=== PATIENT | female | born 2000 | race Two or more races ===

== ENCOUNTER 2020-12-19 21:00 | Emergency (ER) | payer MEDICAID ==
[~2020-12-19] VITALS: Ht 167.6 cm; Wt 123.0 kg
[2020-12-19] MEDS ORDERED: SODIUM CHLORIDE 0.9% 1,000 ML IV ONE (23:15)
[2020-12-19 23:31] LABS: CLARITY URINE TURBID (CLEAR); COLOR URINE YELLOW (YELLOW); KETONES URINE NEGATIVE (NEGATIVE); LEUKOCYTE ESTERASE URINE NEGATIVE (NEGATIVE); NITRITE URINE NEGATIVE (NEGATIVE); OCCULT BLOOD URINE TRACE (NEGATIVE); PROTEIN URINE 2+ (NEGATIVE); SPECIFIC GRAVITY URINE 1.046 (1.005-1.030); UROBILINOGEN URINE 0.2 E.U./dL (0.2-1.0)
[2020-12-19 23:43] LABS: BASOPHILS % 0.3 % (0.0-2.0); EOSINOPHILS % 0.5 % (0.0-5.0); HEMATOCRIT. 37.6 % (36.0-48.0); HEMOGLOBIN. 12.4 g/dL (12.0-16.0); LYMPHOCYTES % 30.1 % (20.0-50.0); MEAN CORPUSCULAR HEMOGLOBIN 27.3 pg (28.0-32.0); MEAN PLATELET VOLUME 7.1 fl (7.4-10.4); MONOCYTES % 6.7 % (2.0-8.0); NEUTROPHILS % 62.4 % (40.0-76.0); PLATELET 343 x1000/uL (130-400); RED BLOOD CELL COUNT 4.53 mill/uL (4.2-5.4); RED CELL DISTRIBUTION WIDTH 14.2 % (11.6-14.6)
[2020-12-19 23:57] LABS: CHLORIDE 107 mEq/L (98-107)
[2020-12-20 00:09] LABS: B-HCG QUANTITATIVE 502 mIU/mL (<3)
[2020-12-20] MEDS ORDERED: METHOTREXATE SODIUM/PF 50 MG/2 ML VIAL IM ONE (01:30)
[2020-12-20 03:54] VITALS: BP 105/57
[2020-12-21] MEDS ORDERED: IBUP-2029 MT (14:19)
== END 2020-12-20 04:07 | disposition home or self-care (01) ==
LOC: ER 21:00
DX: O00.90 Unspecified ectopic pregnancy without intrauterine pregnancy (principal)
CPT/HCPCS: 36415; 76801; 76817; 80053; 81003; 81025; 84702; 85025; 86850; 86900; 86901; 93005; 96360; 96361; 96372; 99285; J7030; J9260

== ENCOUNTER 2020-12-30 13:21 | Emergency (ER) | payer MEDICAID ==
[~2020-12-30] VITALS: Ht 170.2 cm; Wt 122.0 kg
[~2020-12-30 13:21] MED LIST: IBUP-2029 MT
[2020-12-30] MEDS ORDERED: SODIUM CHLORIDE 0.9% 1,000 ML IV ONE (14:00)
[2020-12-30 14:53] LABS: BASOPHILS % 0.3 % (0.0-2.0); EOSINOPHILS % 1.2 % (0.0-5.0); HEMATOCRIT. 36.3 % (36.0-48.0); HEMOGLOBIN. 12.1 g/dL (12.0-16.0); MEAN CORPUSCULAR HEMOGLOBIN 27.7 pg (28.0-32.0); MEAN CORPUSCULAR VOLUME 83.5 fL (81.0-99.0); MEAN PLATELET VOLUME 6.7 fl (7.4-10.4); MONOCYTES % 7.9 % (2.0-8.0); NEUTROPHILS % 57.6 % (40.0-76.0); PLATELET 308 x1000/uL (130-400); RED BLOOD CELL COUNT 4.35 mill/uL (4.2-5.4)
[2020-12-30 15:03] LABS: PROTHROMBIN TIME 10.4 sec (9.6-11.0)
[2020-12-30 15:04] LABS: CHLORIDE 104 mEq/L (98-107)
[2020-12-30 15:15] LABS: B-HCG QUANTITATIVE 50 mIU/mL (<3)
[2020-12-30 16:34] LABS: CLARITY URINE CLEAR (CLEAR); COLOR URINE YELLOW (YELLOW); KETONES URINE NEGATIVE (NEGATIVE); LEUKOCYTE ESTERASE URINE NEGATIVE (NEGATIVE); NITRITE URINE NEGATIVE (NEGATIVE); OCCULT BLOOD URINE 3+ (NEGATIVE); PROTEIN URINE TRACE (NEGATIVE); SPECIFIC GRAVITY URINE 1.015 (1.005-1.030); UROBILINOGEN URINE 0.2 E.U./dL (0.2-1.0)
[2020-12-30 17:51] VITALS: BP 102/56
== END 2020-12-30 17:52 | disposition home or self-care (01) ==
LOC: ER 13:21
DX: O00.90 Unspecified ectopic pregnancy without intrauterine pregnancy (principal); I49.9 Cardiac arrhythmia, unspecified; E86.0 Dehydration
CPT/HCPCS: 36415; 76830; 76856; 80053; 81003; 81025; 84702; 85025; 85610; 86850; 86900; 86901; 93005; 96360; 99285; J7030; Z7610

== ENCOUNTER 2021-04-05 22:19 | Emergency (ER) | payer MEDICAID ==
[~2021-04-05] VITALS: Ht 165.1 cm; Wt 132.2 kg
[2021-04-06 01:49] LABS: CHLORIDE 106 mEq/L (98-107)
[2021-04-06 01:55] LABS: BASOPHILS % 0.6 % (0.0-2.0); EOSINOPHILS % 0.7 % (0.0-5.0); HEMATOCRIT. 38.4 % (36.0-48.0); HEMOGLOBIN. 12.5 g/dL (12.0-16.0); LYMPHOCYTES % 32.5 % (20.0-50.0); MEAN CORPUSCULAR HEMOGLOBIN 26.6 pg (28.0-32.0); MEAN CORPUSCULAR VOLUME 81.8 fL (81.0-99.0); MEAN PLATELET VOLUME 7.1 fl (7.4-10.4); MONOCYTES % 7.9 % (2.0-8.0); NEUTROPHILS % 58.3 % (40.0-76.0); PLATELET 303 x1000/uL (130-400); RED CELL DISTRIBUTION WIDTH 14.7 % (11.6-14.6)
[2021-04-06 02:12] LABS: B-HCG QUANTITATIVE 1803 mIU/mL (<3)
[2021-04-06 03:00] LABS: CLARITY URINE CLEAR (CLEAR); COLOR URINE YELLOW (YELLOW); KETONES URINE NEGATIVE (NEGATIVE); LEUKOCYTE ESTERASE URINE NEGATIVE (NEGATIVE); NITRITE URINE NEGATIVE (NEGATIVE); OCCULT BLOOD URINE NEGATIVE (NEGATIVE); PH URINE 7.5 (4.5-8.0); PROTEIN URINE NEGATIVE (NEGATIVE); SPECIFIC GRAVITY URINE 1.012 (1.005-1.030); UROBILINOGEN URINE 0.2 E.U./dL (0.2-1.0)
[2021-04-06] MEDS ORDERED: TOPUD MT (04:55)
[2021-04-06 05:02] VITALS: BP 132/69
== END 2021-04-06 05:02 | disposition home or self-care (01) ==
LOC: ER 22:22
DX: O26.891 Other specified pregnancy related conditions, first trimester (principal); K21.9 Gastro-esophageal reflux disease without esophagitis
CPT/HCPCS: 36415; 76801; 76817; 80053; 81003; 81025; 83690; 84702; 85025; 86850; 86900; 86901; 99284; Z7610

== ENCOUNTER 2023-05-17 20:36 | Emergency (ER) | payer BC, MEDICAID ==
[~2023-05-17] VITALS: Ht 165.1 cm; Wt 132.5 kg
[~2023-05-17 20:36] MED LIST changes: +TOPUD MT
[2023-05-17 21:00] VITALS: BP 120/71; O2SAT 99
[2023-05-17] MEDS ORDERED: NAPR-1176 MT (22:46)
[2023-05-17 23:11] VITALS: PULSE 76; RESP 16; TEMP 98.7
== END 2023-05-17 23:12 | disposition home or self-care (01) ==
LOC: ER 20:40
DX: S93.402A Sprain of unspecified ligament of left ankle, initial encounter (principal); X50.1XXA Overexertion from prolonged static or awkward postures, initial encounter; Y93.89 Activity, other specified; Y92.89 Other specified places as the place of occurrence of the external cause; Y99.8 Other external cause status
CPT/HCPCS: 81025; 73610; 99285; Z7610; 99283

== ENCOUNTER 2023-06-07 09:25 | Emergency (ER) | payer BC, MEDICAID ==
[~2023-06-07] VITALS: Ht 172.7 cm; Wt 113.4 kg
[~2023-06-07 09:25] MED LIST changes: +NAPR-1176 MT
[2023-06-07 09:35] VITALS: O2SAT 100
[2023-06-07 10:03] LABS: BASOPHILS % 0.1 % (0.0-2.0); EOSINOPHILS % 0.3 % (0.0-5.0); HEMATOCRIT. 39.9 % (36.0-48.0); HEMOGLOBIN. 12.7 g/dL (12.0-16.0); LYMPHOCYTES % 11.6 % (20.0-50.0); MEAN CORPUSCULAR HEMOGLOBIN 26.1 pg (28.0-32.0); MEAN CORPUSCULAR HGB CONC 31.7 g/dL (31.0-37.0); MEAN CORPUSCULAR VOLUME 82.2 fL (81.0-99.0); MEAN PLATELET VOLUME 7.1 fl (7.4-10.4); MONOCYTES % 6.4 % (2.0-8.0); NEUTROPHILS % 81.6 % (40.0-76.0); PLATELET 300 x1000/uL (130-400); RED BLOOD CELL COUNT 4.86 mill/uL (4.2-5.4); RED CELL DISTRIBUTION WIDTH 14.9 % (11.6-14.6); WHITE BLOOD COUNT 12.8 x1000/uL (4.5-11.0)
[2023-06-07 10:03] LABS: CLARITY URINE CLEAR (CLEAR); COLOR URINE YELLOW (YELLOW); GLUCOSE URINE NEGATIVE (NEGATIVE); KETONES URINE NEGATIVE (NEGATIVE); LEUKOCYTE ESTERASE URINE NEGATIVE (NEGATIVE); NITRITE URINE NEGATIVE (NEGATIVE); OCCULT BLOOD URINE TRACE (NEGATIVE); PH URINE 8.5 (4.5-8.0); PROTEIN URINE TRACE (NEGATIVE); SPECIFIC GRAVITY URINE 1.017 (1.005-1.030)
[2023-06-07 10:06] LABS: WBC URINE 0-2 /hpf (0-2); YEAST URINE NONE SEEN
[2023-06-07] MEDS ORDERED: ONDANSETRON HCL 4MG/2ML INJ IV STA (10:22)
[2023-06-07] MEDS ORDERED: MORPHINE SULFATE 4 MG/ML CPJ (NOT FOR IM USE) IV STA (10:22)
[2023-06-07] MEDS ORDERED: SODIUM CHLORIDE 0.9% 1,000 ML IV ONE (10:30)
[2023-06-07 10:44] LABS: MUCUS URINE 1+ /lpf (< = 2+); RBC URINE 0-2 /hpf (0-2); SQUAMOUS EPITHELIAL CELL URINE 1+ /lpf (RARE/1+)
[2023-06-07 10:45] LABS: BACTERIA URINE 1+
[2023-06-07] MEDS ORDERED: MORPHINE SULFATE 4 MG/ML CPJ (NOT FOR IM USE) IV SCH (13:00)
[2023-06-07 13:48] LABS: INDEX HEMOLYSI 1 (1-3); INDEX ICTERIC 1 (1-4); INDEX LIPEMIC 1 (1-3)
[2023-06-07 14:16] LABS: ALANINE AMINOTRANSFERASE 21 IU/L (13-61); ALBUMIN 3.6 g/dL (3.4-5.0); ASPARTATE AMINOTRANSFERASE 14 IU/L (15-37); BILIRUBIN TOTAL 0.4 mg/dL (0.1-1.0); CARBON DIOXIDE 28 mEq/L (21-32); CREATININE 0.6 mg/dL (0.6-1.3); GLUCOSE 99 mg/dL (70-105); PROTEIN TOTAL 8.2 g/dL (6.0-8.3); UREA NITROGEN BLOOD 8 mg/dL (7-21)
[2023-06-07] MEDS ORDERED: MORPHINE SULFATE 4 MG/ML CPJ (NOT FOR IM USE) IV NR (17:00)
[2023-06-07 19:13] VITALS: BP 109/60; PULSE 73; RESP 18; TEMP 98.6
[2023-06-07 21:30] LABS: CHLORIDE 104 mEq/L (98-107); SODIUM 139 mEq/L (136-145)
== END 2023-06-07 19:15 | disposition home or self-care (01) ==
LOC: ER 09:35
DX: R10.31 Right lower quadrant pain (principal); Z87.442 Personal history of urinary calculi
CPT/HCPCS: 80053; 81003; 81025; 83605; 83690; 85025; 36415; 74177; 76830; 76856; 96361; 96374; 96375; 96376; 99285; J2405; J2270; J7030; Z7610 ×3